=== PATIENT | male | born 2000 | race Caucasian/White ===

== ENCOUNTER 2021-02-01 01:04 | Outpatient (CLI) | payer BC, SELFPAY ==
--- NOTE | 2021-02-01 07:45 | DI.RAD_ITS ---
Exam(s) XR SACROILIAC JOINTS EXAM: XR SACROILIAC JOINTS CLINICAL HISTORY: POSSIBLE AK, POLYARTHRITIS, M13.0. TECHNIQUE: 2D digital imaging was performed. COMPARISON: No exams were available for comparison FINDINGS: No fractures or osseous lesions. Sacroiliac joints appear unremarkable. No erosions. No ankylosis. . Visualized hips appear unremarkable. IMPRESSION: No significant radiograph findings in the sacroiliac joints. DATA REPOSITORY: RADIATION DOSE DELIVERED:
== END 2021-02-01 01:24 ==
PROVIDERS: PCP Family Medicine; Visit Provider Family Medicine
DX: M13.0 Polyarthritis, unspecified (principal)
CPT/HCPCS: 72202

== ENCOUNTER 2021-03-15 02:10 | Outpatient (CLI) | payer BC, SELFPAY ==
[2021-03-15 09:44] LABS: ESR < 1 mm/hr (0-15)
[2021-03-15 10:25] LABS: C-Reactive Protein 0.09 mg/dL (0.0-0.3)
[2021-03-15 16:07] LABS: Rheumatoid Factor <8.6 IU/mL (<12.0)
[2021-03-16 10:16] LABS: Cyclic Citrullinated Peptide <2.5 U/mL (<5.0)
[2021-03-16 16:10] LABS: ANA Interpretation Negative (Negative)
== END 2021-03-15 02:11 | disposition home or self-care (01) ==
LOC: LBO 02:10
PROVIDERS: PCP Family Medicine; Visit Provider Family Medicine
DX: M13.0 Polyarthritis, unspecified (principal)
CPT/HCPCS: 36415; 85652; 86200; 86038; 86140; 86431

== ENCOUNTER 2021-05-31 01:56 | Outpatient (CLI) | payer BC, SELFPAY ==
[2021-05-31 13:25] LABS: Abs Immature Grans 0.08 10^3/uL (0.0-0.06); Absolute Basophil Count 0.05 10^3/uL (0.0-0.2); Absolute Eosinophil Count 0.22 10^3/uL (0.0-0.7); Absolute Lymphocyte Count 1.48 10^3/uL (1.2-3.4); Absolute Monocyte Count 0.45 10^3/uL (0.1-0.8); Absolute Neutrophil Count 3.07 10^3/uL (1.2-6.7); Basophils % 0.9; Eosinophils % 4.1; HCT 43.1 % (40.0-50.0); HGB 14.7 g/dL (13.5-17.5); Immature Grans % 1.5; Lymphocytes % 27.7; MCH 29.5 pg (27.0-33.0); MCHC 34.1 % (32.0-36.0); MCV 86.4 fL (80-95); MPV 10.7 fL (8.0-11.0); Monocytes % 8.4; Neutrophils % 57.4; Nucleated RBC 0 %; Platelet Count 174 10^3/uL (130-400); RBC 4.99 10^6/uL (4.36-5.78); RDW 11.4 % (11.8-14.1); RDW-SD 36.4 fL; WBC 5.35 10^3/uL (4.4-10.8)
[2021-05-31 13:49] LABS: VALPROIC ACID 37.5 ug/mL
[2021-05-31 15:52] LABS: ALT 29 U/L (16-63); AST 20 U/L (15-37); Albumin 4.6 g/dL (3.4-5.0); Alkaline Phosphatase 65 U/L (46-116); Anion Gap 1.2 mmol/L (3-11); BUN 21 mg/dL (7-18); Bilirubin, Total 0.4 mg/dL (0.2-1.0); CO2 30.8 mmol/L (21.0-32.0); Calcium 9.7 mg/dL (8.5-10.1); Calculated LDL 89 mg/dL (<100); Chloride 101 mmol/L (98-107); Cholesterol 159 mg/dL (<200); Ferritin 152 ng/mL (26-388); Glucose 88 mg/dL (74-106); HDL Cholesterol 28 mg/dL (40-60); Magnesium 1.8 mg/dL (1.8-2.4); Potassium 4.1 mmol/L (3.5-5.1); Sodium 133 mmol/L (136-145); TSH 1.96 uIU/mL (0.36-3.74); Total Protein 7.4 g/dL (6.4-8.2); Triglyceride 212 mg/dL (<150); Vitamin B12 570 pg/mL (193-986)
[2021-05-31 16:14] LABS: C-Reactive Protein 0.11 mg/dL (0.0-0.3); FREE T4 0.93 ng/dL (0.76-1.46)
[2021-05-31 16:41] LABS: Hemoglobin A1C 5.3 % (<5.7)
[2021-05-31 17:14] LABS: Vitamin D 25 Total 12.6 ng/mL (30-100)
[2021-05-31 21:48] LABS: T3,Free 4.5 pg/mL (2.8-5.3)
== END 2021-05-31 01:57 | disposition home or self-care (01) ==
LOC: LBO 01:56
PROVIDERS: PCP Family Medicine; Visit Provider Psychiatry & Neurology Psychiatry
DX: F29 Unspecified psychosis not due to a substance or known physiological condition (principal); Z79.899 Other long term (current) drug therapy
CPT/HCPCS: 36415; 80053; 80061; 82306; 80164; 82607; 82728; 83036; 83735; 84439; 84443; 84481; 85025; 86140

== ENCOUNTER 2022-07-29 01:35 | Outpatient (CLI) | payer OTHER, SELFPAY ==
--- OUTSIDE RECORDS SUMMARY | 2022-07-29 01:39 | XMS_ITS ---
:2000 Author Organization 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 Problem Epilepsy, unspecified, G40.901 Active 22159285 not intractable, with status epilepticus Problem Epilepsy 345.90 Active 07296760 Problem Seizure R56.9 Active 30749554 Problem Abnormal R94.01 Active 449964308 electroencephalogram (EEG) Problem Attention-deficit F90.9 Active 40 9171325 hyperactivity disorder, unspecified type ALLERGIES Substance Reaction Event Type Date Status Amoxicillin hives Non Drug Allergy May, Active Thorazine tachycardia Drug Allergy May, Active Sulfa purpura rash Non Drug Allergy May, Active ENCOUNTERS Encounter Location Date Diagnosis [facility] [address] [place] [address] May, [address] [facility] [address] [place], [place] [id number] [facility] [address] [place] [address] May, Epilepsy, unspecified, not at [facility] [address] intractable, wit h status [place], [place] epilepticus G40. 901 ; Other [id number] specified mental disorders due to known physiol ogical condition F06.8 ; Tic disorder, unspecified F95. 9 ; Attention-defici t hyperactivity disorder, unspec ified type F90.9 ; Acute in tractable headache, unspec ified headache type R51.9 and A bnormal electroencephalo gram (EEG) R94.01 [facility] [address] [place] [address] Apr, [address] [facility] [address] [place], [place] [id number] [facility] [address] [place] [address] Apr, at [place], [place] [id number] [facility] [address] [place] [address] Apr, at [place], [place] [id number] [facility] [address] [place] [address] Apr, Seizure R 56.9 at [place], [place] [id number] UNKNOWN Jul, [facility] [address] [place] [address] Jun, at [place], [place] [id number] [facility] [address] [place] [address] Jun, Epilepsy 345.90 ; PANDAS at [facility] (pediatric autoi mmune [place], [place] neuropsychiatric disease [id number] associated with streptococcal infection) 294.8 ; Tic disorder 307.20 and ADHD (attention deficit hyperact ivity disorder) 314.01 [facility] [address] [place] [address] Jun, at [place], [place] [id number] IMMUNIZATIONS No Known Immunizations SOCIAL HISTORY Never Assessed REASON FOR REFERRAL FUNCTIONAL STATUS PLAN OF CARE VITAL SIGNS Height 5 ft 10 in in 2020-05-25 Height 5 ft 10 in in 2013-07-11 Weight 182.4 lbs 2020-05-25 Weight 128 lb 6 oz lbs 2013-07-11 Heart Rate 84 /min 2020-05-25 Heart Rate 90 /min 2013-07-11 BMI 26.17 kg/m2 2020-05-25 BMI 18.42 kg/m2 2013-07-11 Blood pressure systolic 136 mm Hg 2020-05-25 Blood pressure diastolic 85 mm Hg 2020-05-25 MEDICATIONS Medication Instructions Dosage Frequency Start End Duration Statu s Date Date Depakote 125 MG Orally Twice a 1 tablet 12h 30 days Active day Minocycline HCl (Prior 30 Active 100 MG Auth#:[id number]) Divalproex Orally Twice a 1 tablet 12h 30 days Activ e Sodium 250 MG day clonazePAM 0.5 Orally PRN 1 tablet on Ac tive MG the tongue and allow to dissolve QUEtiapine (Prior 30 Active Fumarate ER 300 Auth#:[id number]) PROCEDURES No Known procedures RESULTS Name Result Date Reference Range EEG (Electroencephalogram) 2020-05-12 VALPROIC ACID 2020-04-18 VALPROIC ACID 26 50-100 Time of Last Dose 04/17/20 @ 22:30 REASON FOR VISIT Clonazepam refill, Pt presents today with his mother, Macie. Pt c/o having a seizure one month ago, last seizure before this was at age 6[address] Pt [address] Ricks a few years ago. Pt just started [employer] *EEG (05/12/20): Left> right temporal sharp waves, Dr. Kelly's notes, 24hr EEG (2013), Depakote, EEG order, Update Demographics - Additional Info, EEG on a disk, JAG seizures, Prelaod EMR Clinical Data Insurance Providers [facility] Member Patient Patient Patient Patient Patient Subscriber Subscriber Subscriber Group Insurance Plan Plan Plan Plan ID Relationship Address Phone Name Date of ID Name Date of No Type Insurance Insurance Insurance Coverage to Subscriber Address Phone Name Dates [employer] OUT [phone] [place] [phone] [id number] OF [place] ATTN [address] [phone] CLAIMS [facility] [id number]
[2022-07-29 09:09] LABS: Abs Immature Grans 0.14 10^3/uL (0.0-0.06); Absolute Basophil Count 0.08 10^3/uL (0.0-0.2); Absolute Lymphocyte Count 2.26 10^3/uL (1.2-3.4); Absolute Monocyte Count 0.59 10^3/uL (0.1-0.8); Basophils % 1.2; HCT 45.6 % (40.0-50.0); HGB 15.5 g/dL (13.5-17.5); Immature Grans % 2.1; Lymphocytes % 33.4; MCH 29.2 pg (27.0-33.0); MCV 86 fL (80-95); MPV 10.5 fL (8.0-11.0); Monocytes % 8.7; Neutrophils % 51.6; Platelet Count 172 10^3/uL (130-400); RDW 11.7 % (11.8-14.1); RDW-SD 36.8 fL; WBC 6.77 10^3/uL (4.4-10.8)
[2022-07-29 09:33] LABS: VALPROIC ACID 95.7 ug/mL
[2022-07-29 09:53] LABS: Hemoglobin A1C 5.3 % (<5.7)
[2022-07-29 09:59] LABS: ALT 22 U/L (16-63); AST 14 U/L (15-37); Albumin 4.5 g/dL (3.4-5.0); Alkaline Phosphatase 59 U/L (46-116); Anion Gap 10.5 mmol/L (3-11); BUN 30 mg/dL (7-18); Bilirubin, Total 0.5 mg/dL (0.2-1.0); CO2 27.5 mmol/L (21.0-32.0); Calcium 9.5 mg/dL (8.5-10.1); Calculated LDL 123 mg/dL (<100); Chloride 103 mmol/L (98-107); Cholesterol 202 mg/dL (<200); Estimated GFR 107.78 (mL/min/1.73m2); Ferritin 182 ng/mL (26-388); Folate 10.6 ng/mL (8.6-20.0); Glucose 101 mg/dL (74-106); HDL Cholesterol 33 mg/dL (40-60); Magnesium 1.9 mg/dL (1.8-2.4); Potassium 3.9 mmol/L (3.5-5.1); Sodium 141 mmol/L (136-145); TSH 5.43 uIU/mL (0.36-3.74); Total Protein 7.9 g/dL (6.4-8.2); Triglyceride 233 mg/dL (<150); Vitamin B12 595 pg/mL (193-986)
[2022-07-29 10:17] LABS: FREE T4 0.89 ng/dL (0.76-1.46)
[2022-07-29 18:51] LABS: T3,Free 4.4 pg/mL (2.8-5.3)
[2022-08-01 08:39] LABS: Homocysteine 10.9 umol/L (5.0-13.9)
[2022-08-01 12:33] LABS: Copper, Serum 86 mcg/dL (73-129)
[2022-08-01 12:34] LABS: Zinc, S 88 mcg/dL (60-106)
== END 2022-07-29 01:36 | disposition home or self-care (01) ==
LOC: LBO 01:36
PROVIDERS: PCP Family Medicine; Visit Provider Psychiatry & Neurology Psychiatry
DX: F29 Unspecified psychosis not due to a substance or known physiological condition (principal)
CPT/HCPCS: 36415; 80053; 80061; 82306; 82525; 83090; 84630; 80164; 82607; 82728; 82746; 83036; 83735; 84439; 84443; 84481; 85025

== ENCOUNTER 2023-11-16 05:05 | Outpatient (CLI) | payer OTHER, SELFPAY ==
[2023-11-16 10:46] LABS: C-Reactive Protein < 0.50 mg/dL (<or=0.5); Magnesium 1.8 mg/dL (1.8-2.4)
== END 2023-11-16 05:06 | disposition home or self-care (01) ==
LOC: LBO 05:05
PROVIDERS: Absent Provider Family Medicine; PCP Family Medicine; Referring Provider Family Medicine; Visit Provider Family Medicine
DX: R63.4 Abnormal weight loss (principal); M13.0 Polyarthritis, unspecified
CPT/HCPCS: 36415; 83735; 86140

== ENCOUNTER 2023-12-28 14:31 | Outpatient (REF) | payer OTHER, SELFPAY | END 2023-12-28 14:32 | disposition home or self-care (01) | LOC: LBN 14:31 | PROVIDERS: PCP Family Medicine; Visit Provider Podiatrist | DX: L03.031 Cellulitis of right toe (principal) | CPT/HCPCS: 87077; 87070; 87075; 87186; 87205 ==

== ENCOUNTER 2024-11-25 01:51 | Outpatient (CLI) | payer OTHER, SELFPAY ==
--- NOTE | 2024-11-25 13:27 | DI.RAD_ITS ---
Exam(s) XR SCOLIOSIS T-L SPINE EXAM: XR SCOLIOSIS T-L SPINE CLINICAL HISTORY: Scoliosis evaluation. TECHNIQUE: 2D digital imaging was performed. Standing AP and lateral images from the cervical spine through pelvis. COMPARISON: No exams were available for comparison FINDINGS: Scoliosis: Mild dextroscoliosis in the thoracic region of 5 degrees. Mild levo scoliosis in the lumb ar region measured at 7 degrees from superior endplate of L1 to the inferior endplate of L4. Vertebrae: No anomalies seen. No hypertrophy is identified. Remainder of the visualized osseous and soft tissue structures: No acute findings. The exam was performed standing and there is a mild overall leg length discrepancy with the right fem oral head projecting approximately 5 millimeter superior to the left. Soft tissues: The lungs are clear. The heart size is normal. Increased stool is noted in the colon. IMPRESSION: Mild biconvex thoracolumbar scoliosis. Mild overall leg length discrepancy. DATA REPOSITORY: RADIATION DOSE DELIVERED:
== END 2024-11-25 02:11 ==
LOC: DI 01:52
PROVIDERS: PCP Family Medicine; Visit Provider Family Medicine
DX: M53.3 Sacrococcygeal disorders, not elsewhere classified (principal)
CPT/HCPCS: 72082